=== PATIENT | male | born 1950 ===

== ENCOUNTER → 2017-09-18 | Emergency (ER) | payer OTHER ==
[~2017-09-18] VITALS: Ht 175.3 cm; Wt 72.6 kg
[~2017-09-18] MED LIST: ASA81 MG PO; COZAAR100 MG PO; NEURONTIN300 MG
== END | disposition home or self-care (01) ==
LOC: ER 17:35
DX: R55 Syncope and collapse (principal); Z98.890 Other specified postprocedural states